=== PATIENT | female | born 1980 | race Caucasian/White ===

== ENCOUNTER 2018-10-06 19:00 | Emergency (ER) | payer MEDICAID, OTHER ==
[~2018-10-06] VITALS: Ht 162.6 cm; Wt 81.6 kg
[~2018-10-06 19:00] MED LIST: [UNRECOGNIZED DRUG - OTHER]
[2018-10-06 19:10] VITALS: BP 185/99
--- NOTE | 2018-10-06 19:10 | NUR ---
PT AMBULATED TO LOBBY WITH VSS. GIVEN GAUZE AND INSTRUCTED TO HOLD PRESSURE AND ELEVATE LEFT HAND.
--- NOTE | 2018-10-06 21:24 | NUR ---
PT AMBULATED TO ER BED 02
--- NOTE | 2018-10-06 21:32 | NUR ---
PT MOVED TO CHAIR E
--- NOTE | 2018-10-06 22:20 | NUR ---
PT BROUGHT TO ER BED 03
[2018-10-06] MEDS ORDERED: LIDOCAINE 1% 500 MG/50 ML VIAL INJ SCH (22:25)
[2018-10-06] MEDS ORDERED: LIDOCAINE MPF 1% - 5 mL VIAL 5 ML ONE (22:34)
[2018-10-06] MEDS ORDERED: ACETAMINOPHEN 325 MG TAB PO ONE (22:50)
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
[2018-10-06] MEDS ORDERED: BACITRACIN OINT 500 UNITS/GM PKT TP ONE (23:30)
--- NOTE | 2018-10-06 23:30 | NUR ---
ER AT BEDSIDE FOR SUTURING
[2018-10-06 23:45] VITALS: BP 176/107
--- NOTE | 2018-10-06 23:45 | NUR ---
Patient discharged with v/s stable. Written and verbal after care instructions given and explained. Patient alert, oriented and verbalized understanding of instructions. Ambulatory with steady gait. All questions addressed prior to discharge. ID band removed. Patient advised to follow up with PMD. Rx of ULTRAM, BACTRIM given. Patient educated on indication of medication including possible reaction and side effects. Opportunity to ask questions provided and answered.
== END 2018-10-06 23:45 | disposition home or self-care (01) ==
LOC: MED 19:00
DX: S61.012A Laceration without foreign body of left thumb without damage to nail, initial encounter (principal); W26.0XXA Contact with knife, initial encounter; Y93.89 Activity, other specified; Y92.89 Other specified places as the place of occurrence of the external cause; Y99.8 Other external cause status
CPT/HCPCS: 12001; 90471; 90715; 99283; J2001